=== PATIENT | male | born 1950 | race Caucasian/White ===

== ENCOUNTER 2019-01-27 11:01 | Emergency (ER) | payer MEDICARE, MEDICAID, SELFPAY ==
[2019-01-27] VITALS (7 sets, daily range): BP systolic 133–167; BP diastolic 72–94; PULSE 89–105; RESP 15–22; TEMP 37; O2SAT 92–99
[2019-01-27] MEDS: SODIUM CHLORIDE 0.9% 1,000 ML 1000 ML IV (11:15)
--- NOTE | 2019-01-27 11:18 | ED.NEUROSD ---
HPI - Neuro Symptoms/Deficit General Chief Complaint: Neuro Symptoms/Deficit Stated Complaint: new onset seizure Time Seen by Provider: 01/27/19 11:02 Source: patient and EMS Mode of arrival: ambulatory Limitations: no limitations History of Present Illness HPI Narrative: Patient is brought to the emergency department from [facility] after being found to have loss of consciousness after taking his OxyContin. Medics met the patient friend's house, and administered intranasal Narcan. Patient awakened and returned to his mental baseline after administration of Narcan. Patient denies any history of seizures. He states he may have accidentally taken an extra OxyContin. He has no complaints at this time. He denies chest pain or shortness of breath. No headache. No weakness or numbness. No nausea or vomiting. No abdominal pain. No dysuria. Patient was not feeling ill prior to this incident, other than an ongoing cough. No other complaints at this time. No recent head injuries. On Anticoagulants: No Related Data Home Medications Medication Instructions Recorded Confirmed fluticasone propionate 1 spray INTRANASAL DIRECTED 01/27/19 01/27/19 gabapentin 100 mg PO DAILY 01/27/19 01/27/19 lisinopril 20 mg PO DAILY 01/27/19 01/27/19 oxycodone [OxyContin] 40 mg PO TID 01/27/19 01/27/19 pravastatin 20 mg PO DAILY 01/27/19 01/27/19 Allergies Allergy/AdvReac Type Severity Reaction Status Date / Time No Known Drug Allergies Allergy Verified 01/27/19 11:22 Review of Systems Constitutional Denies chills, Denies fever(s), Denies lethargy and Denies weakness Eyes Denies change in vision, Denies eye discharge, Denies irritation and Denies loss of vision ENT Ears, Nose, Mouth, and Throat: Denies change in voice, Denies neck pain and Denies sore throat Cardiovascular Denies chest pain, Reports syncope, Denies irregular heart rhythm, Denies lightheadedness, Denies palpitations, Denies dyspnea, Denies dyspnea on exertion and Denies orthopnea Respiratory Denies cough, Denies dyspnea, Denies dyspnea on exertion and Denies wheezing Gastrointestinal Gastrointestinal: Denies abdominal pain, Denies change in bowel habits, Denies diarrhea, Denies nausea and Denies vomiting Genitourinary Denies hematuria, Denies flank pain, Denies urinary incontinence and Denies urinary urgency Musculoskeletal Denies neck pain Integumentary/Breasts Denies pruritus, Denies erythema, Denies rash and Denies wounds Neurologic Denies confusion, Reports syncope, Denies loss of vision, Reports seizure-like activity and Denies weakness Psychiatric Denies anxiety, Denies confusion, Denies depression, Denies homicidal ideation and Denies suicidal ideation Endocrine Denies palpitations Hematologic/Lymphatic Denies easy bruising Allergic/Immunologic Denies wheezing [facility] Medical History (Updated 02/07/19 @ 19:19 by Merary Clark MD) HTN (hypertension) (Acute) Chronic pain (Acute) Surgical History (Updated 02/07/19 @ 19:20 by Merary Clark MD) No pertinent past surgical history (Acute) Social History Smoking Status: Smoker, status unknown Social History Smoking Status: Smoker, status unknown Exam Initial Vital Signs Initial Vital Signs: Vital Signs Temperature 98.6 F 01/27/19 11:04 Pulse Rate 105 H 01/27/19 11:04 Respiratory Rate 22 01/27/19 11:04 Blood Pressure 145/94 H 01/27/19 11:04 Pulse Oximetry 94 01/27/19 11:04 Const General: cooperative and well developed Nutritional Appearance: well nourished Orientation: alert, awake, oriented x3 and not confused [facility] Head: normocephalic and atraumatic Ears: external ears normal Nose: external nose normal and No nasal discharge Face and sinus: face symmetric and No dry mucous membranes Mouth: oral mucosae normal and moist mucous membranes Teeth and gingiva: dentition normal Eyes General: appearance normal, both eyes and all related structures Eyelids: eyelids normal Conjunctivae: conjunctivae normal Sclera: sclerae normal Pupils: PERRL EOM: EOM intact bilaterally Neck Neck: normal visual inspection, trachea midline, No lymphadenopathy, No midline deformity and No JVD Lymphatic: No lymphedema Chest Chest: normal inspection of the chest Resp Effort & Inspection: normal respiratory effort, able to speak in complete sentences, no respiratory distress and no use of accessory muscles Auscultation: clear to auscultation bilaterally, no rales, no rhonchi and no wheezes Cardio Rate: regular rate Rhythm: regular rhythm Heart Sounds: no click, no gallops, no murmurs and no rubs Pulses: normal peripheral pulses GI Inspection: non-distended Palpation: soft, no hepatosplenomegaly, No guarding, No pulsatile mass and No tender Auscultation: normal bowel sounds Back/Spine/Pelvis Back: No CVA tenderness Cervical Spine: cervical ROM normal and No pain with cervical ROM Thoracic/Lumbar Spine: thoracic and lumbar spine normal to inspection Skin General: no rashes or lesions noted, No jaundice and No petechiae Neuro General: alert, awake, oriented x3, gait normal, no focal motor deficits and CN's II-XI intact bilaterally Speech: speech normal Extrem General: full ROM, no clubbing, cyanosis or edema, no pedal edema and no calf tenderness Psych Appearance: well kempt Mental Status: mental status grossly normal Attitude: cooperative Thought Content: normal and suicidality Judgment: judgment good Course Course Narrative: Patient was evaluated by myself upon arrival with EMS. He was alert and oriented and appropriate, and without any complaints. He was worked up with labs and chest x-ray, and workup was found to be negative. The patient did not report any trauma, and had not had any issues with syncope or seizures in the past. He had immediately awakened with Narcan, and I felt that it was most likely that the patient had either taken too much of his OxyContin, or that he had been affected by it more this time, causing his obtundation. I discussed with the patient that he will need to follow up with his doctor to determine whether EEG is warranted. We have discussed the usual indications for return to the emergency department. Orders Ordered: Discontinued Medications Sodium Chloride (Normal Saline 0.9%) 1,000 mls @ 1,000 mls/hr IV BOLUS ONE Stop: 01/27/19 12:16 Last Infusion: 01/27/19 12:08 Dose: 0 mls/hr Admin: 01/27/19 11:15 Dose: 1,000 mls/hr Vital Signs - 8 hr 01/27/19 11:04 Temperature 98.6 F Pulse Rate 105 H Respiratory Rate 22 Blood Pressure 145/94 H Pulse Oximetry 94 MDM - Neuro Symptoms/Deficit Medical Records Attestation: I reviewed the patient's medical records. Lab Data Attestation: I reviewed the patient's lab results. Result diagrams: 01/27/19 11:36 01/27/19 11:36 Lab Results 01/27/19 01/27/19 01/27/19 Range/Units 11:36 11:36 12:07 WBC 19.5 H (4.5-11.0) X10^3/uL RBC 4.63 (4.5-5.9) X10^6/uL Hgb 14.4 (13.5-17.5) g/dL Hct 42.6 (41-53) % MCV 91.9 (80-100) fL MCH 31.1 (26-34) PG MCHC 33.8 (30-36) % RDW 15.0 H (11.6-14.8) % Plt Count 454 H (150-400) X10^3/uL Neut % (Auto) 89.1 H (50-75) % Lymph % (Auto) 4.5 L (25-40) % [place] % (Auto) 5.6 (3-14) % Eos % (Auto) 0.2 L (2-4) % Baso % (Auto) 0.6 (0-2) % Neut # (Auto) 48021 H (8987-3819) /uL Lymph # (Auto) 900 L (7851-9554) /uL [place] # (Auto) 1100 H (0-900) /uL Eos # (Auto) 0 (0-450) /uL Baso # (Auto) 100 (0-100) /uL Sodium 136 L (137-145) mmol/L Potassium 4.1 (3.4-5.1) mmol/L Chloride 104 (98-107) mmol/L Carbon Dioxide 23 (22-32) mmol/L BUN 18 (9-20) mg/dL Creatinine 0.80 (0.66-1.25) mg/dL Estimated GFR > 60.0 (>60) mL/min BUN/Creatinine Ratio 22.5 H (6-22) Glucose 145 H (80-110) mg/dL Calcium 9.1 (8.4-10.2) mg/dL Total Bilirubin 0.5 (0.2-1.3) mg/dL AST 38 (17-59) IU/L ALT 37 (21-72) IU/L Alkaline Phosphatase 99 (38-126) U/L Total Creatine Kinase 32 L (55-170) U/L CK-MB (CK-2) TNP CK-MB (CK-2) Rel Index TNP Troponin I < 0.012 (0.01-0.034) ng/mL Total Protein 6.9 (6.3-8.2) g/dL Albumin 3.9 (3.5-5.0) g/dL Globulin 3.0 (1.7-4.1) g/dL Albumin/Globulin Ratio 1.3 (1.0-2.8) Urine RBC 0-1/hpf (0-5/HPF) Urine WBC 0-1/hpf (0-5/HPF) Amorphous Sediment 3+ Urine Bacteria Occasional (0-1) (None) Urine Mucus 1+ H (Negative) Ur Culture Indicated? Specimen cultured Urine Dip Bedside Urine Glucose Negative Bedside Urine Bilirubin - Negative Bedside Urine Ketone - Negative Urine Specific [place] 1.020 Bedside Urine Occult Blood +/- Bedside Urine pH 6.5 Bedside Urine Protein + 30 Bedside Urine Urobilinogen +/- 1mg Bedside Urine Nitrite - Negative Bedside Urine Leukocytes +/- 15 Esterase Imaging Data Chest x-ray: Radiologist's impression: PROCEDURE: XR CHEST 2V INDICATIONS: cough, leukocytosis TECHNIQUE: 2 views of the chest were acquired. COMPARISON: None. FINDINGS: Surgical changes and devices: Cervical spine fixation hardware Lungs and pleura: No acute consolidation. Scattered scarring/atelectasis. Ill-defined nodular opacity projects in the right lung base, subcentimeter in size and could be related to anterior rib end shadow. No pleural effusions or pneumothorax. Mediastinum: Mediastinal contours are normal. Heart size is normal. Bones and chest wall: No suspicious bony abnormalities. Soft tissues appear unremarkable. IMPRESSION: No acute disease. Probable prominent rib end shadow projecting in the right lung base although given the absence of prior studies, consider 3 month PA and lateral chest radiograph followup to exclude pulmonary nodule. Dictated by: Ryan Gambino M.D. on 01/27/2019 at 13:45 Approved by: Ryan Gambino M.D. on 01/27/2019 at 13:47 Discharge Plan Departure Patient Disposition: Home Clinical Impression: Episode of syncope Qualifiers: Syncope type: unspecified Qualified Code(s): R55 - Syncope and collapse Discharge Date/Time: 01/27/19 14:35 Interventions: ED Discharge Assessment Last Done: 01/27/19 14:34 Instructions: DI for Syncope in Adults (Fainting) Activity Restrictions/Additional Instructions: Your labs and EKG did not show any checked findings indicative of an emergent condition, given routine your symptoms and physical findings. Your chest x-ray did show a slight abnormality which may be chronic, but the radiologist has recommended that he have a repeat chest x-ray in about 3 months to see if anything has changed. There is no evidence of pneumonia or other infectious cause of your symptoms. At this time, you have been treated for dehydration, and should drink plenty of water at home. Please follow up with your primary doctor. Prescriptions: No Action lisinopril 20 mg tablet 20 mg PO DAILY RF: 0 pravastatin 20 mg tablet 20 mg PO DAILY RF: 0 gabapentin 100 mg capsule 100 mg PO DAILY RF: 0 fluticasone propionate 50 mcg/actuation spray,suspension 1 spray Intranasal DIRECTED RF: 0 oxycodone [OxyContin] 40 mg tablet,oral only,ext.rel.12 hr 40 mg PO TID RF: 0
[2019-01-27 11:48] LABS: Add Manual Diff / Slide Review NO; Basophils Absolute Auto 100 /uL (0-100); Basophils Percent Auto 0.6 % (0-2); Eosinophils Absolute Auto 0 /uL (0-450); Eosinophils Percent Auto 0.2 % (2-4); Hematocrit 42.6 % (41-53); Hemoglobin 14.4 g/dL (13.5-17.5); Lymphocytes Absolute Auto 900 /uL (1100-4500); Lymphocytes Percent Auto 4.5 % (25-40); Mean Corpuscular HGB Conc 33.8 % (30-36); Mean Corpuscular Hemoglobin 31.1 PG (26-34); Mean Corpuscular Volume 91.9 fL (80-100); Monocytes Absolute Auto 1100 /uL (0-900); Monocytes Percent Auto 5.6 % (3-14); Neutrophils Absolute Auto 17300 /uL (1500-7000); Neutrophils Percent Auto 89.1 % (50-75); Platelet Count 454 X10^3/uL (150-400); Red Blood Cell Count 4.63 X10^6/uL (4.5-5.9); White Blood Cell Count 19.5 X10^3/uL (4.5-11.0)
[2019-01-27 12:02] LABS: Alanine Aminotransferase 37 IU/L (21-72); Albumin 3.9 g/dL (3.5-5.0); Albumin Globulin Ratio 1.3 (1.0-2.8); Alkaline Phosphatase 99 U/L (38-126); Aspartate Aminotransferase 38 IU/L (17-59); BUN Creatinine Ratio 22.5 (6-22); Bilirubin Total 0.5 mg/dL (0.2-1.3); Blood Urea Nitrogen 18 mg/dL (9-20); Calcium 9.1 mg/dL (8.4-10.2); Carbon Dioxide 23 mmol/L (22-32); Chloride 104 mmol/L (98-107); Creatine Kinase 32 U/L (55-170); Estimated Glomerular Filt Rate > 60.0 mL/min (>60); Glucose 145 mg/dL (80-110); HEMOLYSIS < 15 (0-50); Potassium 4.1 mmol/L (3.4-5.1); Sodium 136 mmol/L (137-145); Total Protein 6.9 g/dL (6.3-8.2)
[2019-01-27 12:14] LABS: Troponin I < 0.012 ng/mL (0.01-0.034)
[2019-01-27 12:20] LABS: Amorphous Sediment Urine 3+; Bacteria Urine Occasional (0-1); Culture Indicated Urine Specimen Cultured; Mucus Urine 1+ (Negative); RBC Urine 0-1/HPF (0-5/HPF); WBC Urine 0-1/HPF (0-5/HPF)
--- NOTE | 2019-01-27 13:21 | DI.RAD.S_ITS ---
PROCEDURE: XR CHEST 2V INDICATIONS: cough, leukocytosis TECHNIQUE: 2 views of the chest were acquired. COMPARISON: None. FINDINGS: Surgical changes and devices: Cervical spine fixation hardware Lungs and pleura: No acute consolidation. Scattered scarring/atelectasis. Ill-defined nodular opacity projects in the right lung base, subcentimeter in size and could be related to anterior rib end shadow. No pleural effusions or pneumothorax. Mediastinum: Mediastinal contours are normal. Heart size is normal. Bones and chest wall: No suspicious bony abnormalities. Soft tissues appear unremarkable. IMPRESSION: No acute disease. Probable prominent rib end shadow projecting in the right lung base although given the absence of prior studies, consider 3 month PA and lateral chest radiograph followup to exclude pulmonary nodule. Dictated by: Ryan Gambino M.D. on 01/27/2019 at 13:45 Approved by: Ryan Gambino M.D. on 01/27/2019 at 13:47
--- NOTE | 2019-02-04 13:47 | ED_ITS ---
HPI - Neuro Symptoms/Deficit General Chief Complaint: Neuro Symptoms/Deficit Stated Complaint: new onset seizure Time Seen by Provider: 01/27/19 11:02 Source: patient and EMS Mode of arrival: ambulatory Limitations: no limitations History of Present Illness HPI Narrative: Patient is brought to the emergency department from [facility] after being found to have loss of consciousness after taking his OxyContin. Me dics met the patient friend's house, and administered intranasal Narcan. Patient awakened and returned to his mental baseline after administration of Narcan. Patient denies any history of seizures. He states he may have accidentally taken an extra OxyContin. He has no complaints at this time. He denies chest pain or shortness of breath. No headache. No weakness or numbness. No nausea or vomiting. No abdominal pain. No dysuria. Patient was not feeling ill prior to this incident, other than an ongoing cough. No other complaints at this time. No recent head injuries. On Anticoagulants: No Related Data Home Medications Medication Instructions Recorded Confirmed fluticasone propionate 1 spray INTRANASAL DIRECTED 01/27/19 01/27/19 gabapentin 100 mg PO DAILY 01/27/19 01/27/19 lisinopril 20 mg PO DAILY 01/27/19 01/27/19 oxycodone [OxyContin] 40 mg PO TID 01/27/19 01/27/19 pravastatin 20 mg PO DAILY 01/27/19 01/27/19 Allergies Allergy/AdvReac Type Severity Reaction Status Date / Time No Known Drug Allergies Allergy Verified 01/27/19 11:22 Review of Systems Constitutional Denies chills, Denies fever(s), Denies lethargy and Denies weakness Eyes Denies change in vision, Denies eye discharge, Denies irritation and Denies loss of vision ENT Ears, Nose, Mouth, and Throat: Denies change in voice, Denies neck pain and Denies sore throat Cardiovascular Denies chest pain, Reports syncope, Denies irregular heart rhythm, Denies lightheadedness, Denies palpitations, Denies dyspnea, Denies dyspnea on exertion and Denies orthopnea Respiratory Denies cough, Denies dyspnea, Denies dyspnea on exertion and Denies wheezing Gastrointestinal Gastrointestinal: Denies abdominal pain, Denies change in bowel habits, Denies diarrhea, Denies nausea and Denies vomiting Genitourinary Denies hematuria, Denies flank pain, Denies urinary incontinence and Denies urinary urgency Musculoskeletal Denies neck pain Integumentary/Breasts Denies pruritus, Denies erythema, Denies rash and Denies wounds Neurologic Denies confusion, Reports syncope, Denies loss of vision, Reports seizure-like activity and Denies weakness Psychiatric Denies anxiety, Denies confusion, Denies depression, Denies homicidal ideation and Denies suicidal ideation Endocrine Denies palpitations Hematologic/Lymphatic Denies easy bruising Allergic/Immunologic Denies wheezing [facility] Medical History (Updated 02/07/19 @ 19:19 by Merary Clark MD) HTN (hypertension) (Acute) Chronic pain (Acute) Surgical History (Updated 02/07/19 @ 19:20 by Merary Clark MD) No pertinent past surgical history (Acute) Social History Smoking Status: Smoker, status unknown Social History Smoking Status: Smoker, status unknown Exam Initial Vital Signs Initial Vital Signs: Vital Signs Temperature 98.6 F 01/27/19 11:04 Pulse Rate 105 H 01/27/19 11:04 Respiratory Rate 22 01/27/19 11:04 Blood Pressure 145/94 H 01/27/19 11:04 Pulse Oximetry 94 01/27/19 11:04 Const General: cooperative and well developed Nutritional Appearance: well nourished Orientation: alert, awake, oriented x3 and not confused [facility] Head: normocephalic and atraumatic Ears: external ears normal Nose: external nose normal and No nasal discharge Face and sinus: face symmetric and No dry mucous membranes Mouth: oral mucosae normal and moist mucous membranes Teeth and gingiva: dentition normal Eyes General: appearance normal, both eyes and all related structures Eyelids: eyelids normal Conjunctivae: conjunctivae normal Sclera: sclerae normal Pupils: PERRL EOM: EOM intact bilaterally Neck Neck: normal visual inspection, trachea midline, No lymphadenopathy, No midline deformity and No JVD Lymphatic: No lymphedema Chest Chest: normal inspection of the chest Resp Effort & Inspection: normal respiratory effort, able to speak in complete sentences, no respiratory distress and no use of accessory muscles Auscultation: clear to auscultation bilaterally, no rales, no rhonchi and no wheezes Cardio Rate: regular rate Rhythm: regular rhythm Heart Sounds: no click, no gallops, no murmurs and no rubs Pulses: normal peripheral pulses GI Inspection: non-distended Palpation: soft, no hepatosplenomegaly, No guarding, No pulsatile mass and No tender Auscultation: normal bowel sounds Back/Spine/Pelvis Back: No CVA tenderness Cervical Spine: cervical ROM normal and No pain with cervical ROM Thoracic/Lumbar Spine: thoracic and lumbar spine normal to inspection Skin General: no rashes or lesions noted, No jaundice and No petechiae Neuro General: alert, awake, oriented x3, gait normal, no focal motor deficits and CN's II-XI intact bilaterally Speech: speech normal Extrem General: full ROM, no clubbing, cyanosis or edema, no pedal edema and no calf tenderness Psych Appearance: well kempt Mental Status: mental status grossly normal Attitude: cooperative Thought Content: normal and suicidality Judgment: judgment good Course Course Narrative: Patient was evaluated by myself upon arrival with EMS. He was alert and oriented and appropriate, and without any complaints. He was worked up with labs and chest x-ray, and workup was found to be negative. The patient did not report any trauma, and had not had any issues with syncope or seizures in the past. He had immediately awakened with Narcan, and I felt that it was most likely that the patient had either taken too much of his OxyContin, or that he had been affected by it more this time, causing his obtundation. I discussed with the patient that he will need to follow up with his doctor to determine whether EEG is warranted. We have discussed the usual indications for return to the emergency department. Orders Ordered: Discontinued Medications Sodium Chloride (Normal Saline 0.9%) 1,000 mls @ 1,000 mls/hr IV BOLUS ONE Stop: 01/27/19 12:16 Last Infusion: 01/27/19 12:08 Dose: 0 mls/hr Admin: 01/27/19 11:15 Dose: 1,000 mls/hr Vital Signs - 8 hr 01/27/19 11:04 Temperature 98.6 F Pulse Rate 105 H Respiratory Rate 22 Blood Pressure 145/94 H Pulse Oximetry 94 MDM - Neuro Symptoms/Deficit Medical Records Attestation: I reviewed the patient's medical records. Lab Data Attestation: I reviewed the patient's lab results. Result diagrams: 01/27/19 11:36 01/27/19 11:36 Lab Results 01/27/19 01/27/19 01/27/19 Range/Units 11:36 11:36 12:07 WBC 19.5 H (4.5-11.0) X10^3/uL RBC 4.63 (4.5-5.9) X10^6/uL Hgb 14.4 (13.5-17.5) g/dL Hct 42.6 (41-53) % MCV 91.9 (80-100) fL MCH 31.1 (26-34) PG MCHC 33.8 (30-36) % RDW 15.0 H (11.6-14.8) % Plt Count 454 H (150-400) X10^3/uL Neut % (Auto) 89.1 H (50-75) % Lymph % (Auto) 4.5 L (25-40) % [place] % (Auto) 5.6 (3-14) % Eos % (Auto) 0.2 L (2-4) % Baso % (Auto) 0.6 (0-2) % Neut # (Auto) 79061 H (5013-2644) /uL Lymph # (Auto) 900 L (3921-4676) /uL [place] # (Auto) 1100 H (0-900) /uL Eos # (Auto) 0 (0-450) /uL Baso # (Auto) 100 (0-100) /uL Sodium 136 L (137-145) mmol/L Potassium 4.1 (3.4-5.1) mmol/L Chloride 104 (98-107) mmol/L Carbon Dioxide 23 (22-32) mmol/L BUN 18 (9-20) mg/dL Creatinine 0.80 (0.66-1.25) mg/dL Estimated GFR > 60.0 (>60) mL/min BUN/Creatinine Ratio 22.5 H (6-22) Glucose 145 H (80-110) mg/dL Calcium 9.1 (8.4-10.2) mg/dL Total Bilirubin 0.5 (0.2-1.3) mg/dL AST 38 (17-59) IU/L ALT 37 (21-72) IU/L Alkaline Phosphatase 99 (38-126) U/L Total Creatine Kinase 32 L (55-170) U/L CK-MB (CK-2) TNP CK-MB (CK-2) Rel Index TNP Troponin I < 0.012 (0.01-0.034) ng/mL Total Protein 6.9 (6.3-8.2) g/dL Albumin 3.9 (3.5-5.0) g/dL Globulin 3.0 (1.7-4.1) g/dL Albumin/Globulin Ratio 1.3 (1.0-2.8) Urine RBC 0-1/hpf (0-5/HPF) Urine WBC 0-1/hpf (0-5/HPF) Amorphous Sediment 3+ Urine Bacteria Occasional (0-1) (None) Urine Mucus 1+ H (Negative) Ur Culture Indicated? Specimen cultured Urine Dip Bedside Urine Glucose Negative Bedside Urine Bilirubin - Negative Bedside Urine Ketone - Negative Urine Specific [place] 1.020 Bedside Urine Occult Blood +/- Bedside Urine pH 6.5 Bedside Urine Protein + 30 Bedside Urine Urobilinogen +/- 1mg Bedside Urine Nitrite - Negative Bedside Urine Leukocytes +/- 15 Esterase Imaging Data Chest x-ray: Radiologist's impression: PROCEDURE: XR CHEST 2V INDICATIONS: cough, leukocytosis TECHNIQUE: 2 views of the chest were acquired. COMPARISON: None. FINDINGS: Surgical changes and devices: Cervical spine fixation hardware Lungs and pleura: No acute consolidation. Scattered scarring/atelectasis. Ill- defined nodular opacity projects in the right lung base, subcentimeter in size and could be related to anterior rib end shadow. No pleural effusions or pneumothorax. Mediastinum: Mediastinal contours are normal. Heart size is normal. Bones and chest wall: No suspicious bony abnormalities. Soft tissues appear unremarkable. IMPRESSION: No acute disease. Probable prominent rib end shadow projecting in the right lung base although given the absence of prior studies, consider 3 month PA and lateral chest radiograph followup to exclude pulmonary nodule. Dictated by: Ryan Gambino M.D. on 01/27/2019 at 13:45 Approved by: Ryan Gambino M.D. on 01/27/2019 at 13:47 Discharge Plan Departure Patient Disposition: Home Clinical Impression: Episode of syncope Qualifiers: Syncope type: unspecified Qualified Code(s): R55 - Syncope and collapse Discharge Date/Time: 01/27/19 14:35 Interventions: ED Discharge Assessment Last Done: 01/27/19 14:34 Instructions: DI for Syncope in Adults (Fainting) Activity Restrictions/Additional Instructions: Your labs and EKG did not show any checked findings indicative of an emergent condition, given routine your symptoms and physical findings. Your chest x-ray did show a slight abnormality which may be chronic, but the radiologist has logan mmended that he have a repeat chest x-ray in about 3 months to see if anything has changed. There is no evidence of pneumonia or other infectious cause of your symptoms. At this time, you have been treated for dehydration, and should drink plenty of water at home. Please follow up with your primary doctor. Prescriptions: No Action lisinopril 20 mg tablet 20 mg PO DAILY RF: 0 pravastatin 20 mg tablet 20 mg PO DAILY RF: 0 gabapentin 100 mg capsule 100 mg PO DAILY RF: 0 fluticasone propionate 50 mcg/actuation spray,suspension 1 spray Intranasal DIRECTED RF: 0 oxycodone [OxyContin] 40 mg tablet,oral only,ext.rel.12 hr 40 mg PO TID RF: 0
== END 2019-01-27 14:35 | disposition home or self-care (01) ==
PROVIDERS: Emergency Provider Emergency Medicine
DX: R55 Syncope and collapse (principal)
CPT/HCPCS: 71046; 80053; 81003; 81015; 82550; 84484; 85025; 87086; 93005; 93010; 96360; 99284; 99285; 99291

== ENCOUNTER → 2023-02-19 12:06 | Outpatient (CLI) | payer MEDICARE, SELFPAY ==
[2023-02-19 19:44] LABS: Add Manual Diff / Slide Review NO; Basophils Absolute Auto 100 /uL (0-100); Basophils Percent Auto 0.8 % (0-2); Eosinophils Absolute Auto 100 /uL (0-450); Eosinophils Percent Auto 1.2 % (2-4); Hematocrit 41.1 % (41-53); Hemoglobin 14.3 g/dL (13.5-17.5); Lymphocytes Absolute Auto 1000 /uL (1100-4500); Lymphocytes Percent Auto 10.1 % (25-40); Mean Corpuscular HGB Conc 34.9 % (30-36); Mean Corpuscular Hemoglobin 31.5 PG (26-34); Mean Corpuscular Volume 90.3 fL (80-100); Monocytes Absolute Auto 1200 /uL (0-900); Monocytes Percent Auto 11.3 % (3-14); Neutrophils Absolute Auto 7900 /uL (1500-7000); Neutrophils Percent Auto 76.6 % (50-75); Platelet Count 278 X10^3/uL (150-400); Red Blood Cell Count 4.55 X10^6/uL (4.5-5.9); Red Cell Distribution Width 15.5 % (11.6-14.8); White Blood Cell Count 10.4 X10^3/uL (4.5-11.0)
[2023-02-19 19:47] LABS: Alanine Aminotransferase 43 IU/L (<50); Albumin 4.2 g/dL (3.5-5.0); Albumin Globulin Ratio 1.4 (1.0-2.8); Alkaline Phosphatase 90 U/L (38-126); Aspartate Aminotransferase 166 IU/L (17-59); BUN Creatinine Ratio 42.9 (6-22); Blood Urea Nitrogen 33 mg/dL (9-20); Carbon Dioxide 24 mmol/L (22-32); Chloride 99 mmol/L (98-107); Estimated Glomerular Filt Rate > 60 mL/min (>60); Globulin 2.9 g/dL (1.7-4.1); Glucose 113 mg/dL (80-110); HEMOLYSIS < 15 (0-50); Potassium 4.5 mmol/L (3.4-5.1); Sodium 134 mmol/L (137-145); Total Protein 7.1 g/dL (6.3-8.2); Uric Acid 8.8 mg/dL (3.5-8.5)
[2023-02-19 20:07] LABS: Erythrocyte Sedimentation Rate 28 MM/HR (0-15)
== END ==
PROVIDERS: PCP Physician Assistant; Visit Provider Physician Assistant
DX: I10 Essential (primary) hypertension (principal); M65.9 Synovitis and tenosynovitis, unspecified
CPT/HCPCS: 80053; 84550; 85025; 85651